=== PATIENT | female | born 1995 | race Caucasian/White ===

== ENCOUNTER → 2016-08-06 | Outpatient (CLI) | payer MEDICAID ==
--- NOTE | 2016-08-06 15:22 | REP ---
Obstetric sonography: History: Supervision of for anatomy followup. Placental location check. Comparison study May 16, 2016. Findings: Scanning through the gravid uterus demonstrates a viable single intrauterine gestation in a breech lie. motion is observed and heart rate is recorded at 139 beats per minute. An anterior grade 0 placenta is seen without evidence of previa or abruption. Amniotic fluid is subjectively normal. Closed cervical length is 3.2 cm. No extrauterine abnormality is observed. There has been appropriate interval growth. The placental tip is located 6.7 cm from the internal cervical os on transabdominal scanning. No anomaly is seen. The following anatomic structures are identified and felt to be sonographically unremarkable: cranium, choroid plexus, cavum, cerebellum and posterior fossa, lungs, four-chamber heart with left and right ventricular outflow tract views, diaphragm, left-sided stomach, abdominal wall cord insertion, three-vessel umbilical cord, kidneys and bladder, lower extremities. Biometry chart: BPD 7.8 cm = 31 weeks 2 days Head circumference 28.8 cm = 31 weeks 5 days Abdominal circumference 26.0 cm = 30 weeks 1 day Femur length 5.8 cm = 30 weeks 2 days Humeral length 5.4 cm = 31 weeks 2 days Cerebellar diameter 3.7 cm = 30 weeks 6 days HC/AC ratio normal 1.11 cephalic index normal 0.75 estimated weight 1568 grams 3 pounds 7 ounces 35th percentile for 30 weeks 5 days. GÓMEZ normal 8.7 cm. S/D ratio normal 3.05. Impression: Viable single intrauterine gestation at 30 weeks 3 days by today's composite sonographic criteria. Expected gestational age estimate based on prior sonography is 30 weeks 5 days SARAH by prior sonography is October 10, 2016. In conjunction with the prior study, anatomic survey is felt to be complete. Signed by Vince Ching MD 08/06/2016 05:13 P
== END ==
LOC: M SMT 12:45
PROVIDERS: ATTEND Advanced Practice Midwife
DX: Z34.82 Encounter for supervision of other normal pregnancy, second trimester (principal); Z3A.30 30 weeks gestation of pregnancy

== ENCOUNTER 2016-08-28 21:55 | Outpatient (CLI) | payer BC, MEDICAID ==
[~2016-08-28] VITALS: Ht 160 cm; Wt 74.0 kg
== END 2016-08-28 22:45 | disposition home or self-care (01) ==
LOC: M LDO 21:55
PROVIDERS: ATTEND Obstetrics & Gynecology
DX: O47.03 False labor before 37 completed weeks of gestation, third trimester (principal); Z3A.34 34 weeks gestation of pregnancy

== ENCOUNTER → 2016-09-14 | Outpatient (REF) | payer MEDICAID | LOC: M LAB REF 16:50 | PROVIDERS: ATTEND Advanced Practice Midwife | DX: Z36 Encounter for antenatal screening of mother (principal); Z3A.00 Weeks of gestation of pregnancy not specified ==

== ENCOUNTER 2016-10-02 16:18 | Inpatient (IN) | payer BC, MEDICAID ==
[~2016-10-02] VITALS: Ht 161.3 cm; Wt 72.0 kg
[2016-10-02] MEDS ORDERED: PRENTAB9 PO (16:30)
[2016-10-02 16:40] VITALS: BP 134/84
[2016-10-02 20:16] LABS: MEAN CORPUSCULAR HEMOGLOBIN 28.3 pg (27.0-33.0); MEAN CORPUSCULAR HGB CONC 33.9 g/dl (32.0-36.5); MEAN CORPUSCULAR VOLUME 83.7 fl (80.0-96.0); RED CELL DISTRIBUTION WIDTH 13.9 % (11.5-14.5)
[2016-10-02] MEDS: miSOPROStol 50 MCG 1/2 TAB (S0191) PO SCH (21:11)
--- NOTE | 2016-10-02 21:40 | HPE ---
DATE OF ADMISSION: 10/02/2016 A 21-year-old 1, para 0 female at 38-6/7 weeks gestation by last menstrual period (LMP) consistent with a 13-week ultrasound, estimated date of confinement (EDC) of 10/10/2016, presents with loss of fluid per vagina since 9 p.m. the day prior to admission. She continually leaked small amounts, felt wet. She denies contractions or vaginal bleeding. COURSE: The patient initiated care at 13 weeks gestation on 04/02/2016. Her blood pressure was 116/70, weight 137 pounds. Her course was significant for heart palpitations. She did see a taper/finisher and everything was normal. MEDICAL HISTORY: Noncontributory. SURGICAL HISTORY: Umbilical hernia. ALLERGIES: None. SOCIAL HISTORY: The father of the baby is involved with the patient. Denies cigarettes, alcohol, or drug use. FAMILY HISTORY: Noncontributory. PHYSICAL EXAMINATION: Blood pressure 134/84, pulse 81, afebrile. She is in no apparent distress. Head and neck exam: Normal. Lungs: Clear. Heart: Regular rate and rhythm. Abdomen: Nontender and gravid. heart tones: Category 1. Contractions: None. Sterile vaginal exam: Small pool in the vagina, positive fern, positive Nitrazine. Cervix is closed, 50% effaced. Extremities: Nontender. LABORATORY: Blood type O negative. Rubella immune. RPR nonreactive. Hepatitis B and C negative. HIV negative. GBS negative on 09/14/2016. ASSESSMENT: A 21-year-old 1 at 38-6/7 weeks gestation, presents with spontaneous rupture of membranes. The patient has likely been ruptured since 9 o'clock the evening before admission. Plan to admit for induction of labor. Risks of induction were discussed.
[2016-10-03] VITALS (44 sets, daily range): BP systolic 107–163; BP diastolic 58–100
[2016-10-03] MEDS: miSOPROStol 50 MCG 1/2 TAB (S0191) PO SCH (02:18)
[2016-10-03] MEDS ORDERED: PROMETHAZINE INJ 25 MG/ML VIAL (J2550) As Ordered ONE (06:58)
[2016-10-03] MEDS ORDERED: BUTORPHANOL 2 MG/ML INJ (J0595) As Ordered ONE (06:59)
[2016-10-03] MEDS ORDERED: BUTORPHANOL 2 MG/ML INJ (J0595) IV ONE ×2 (07:15→20:15)
[2016-10-03] MEDS ORDERED: PROMETHAZINE INJ 25 MG/ML VIAL (J2550) IV ONE ×2 (07:15→20:15)
[2016-10-03] MEDS ORDERED: LR 1,000 ML IV SCH (13:19)
[2016-10-03] MEDS ORDERED: OXYTOCIN DRIP 30 UNITS in APPROPRIATE DILUENT 1 EA IV SCH (13:30)
[2016-10-03] MEDS ORDERED: FENTANYL 2MCG/ML ROPIVACAINE 0.2% NACL 250 ML CADD As Ordered ONE (21:28)
[2016-10-04 00:09] VITALS: BP 118/80
--- NOTE | 2016-10-04 00:12 | DN ---
DATE OF DELIVERY: 10/03/2016 TIME OF WAS 23:07 GENDER: Male. APGARS: 8 and 9 WEIGHT: 2572 grams, 5 pounds, 11 ounces. ESTIMATED BLOOD LOSS: 300 mL. ANESTHESIA: Epidural. LACERATIONS: None. COUNTS: 5 Laparotomy sponges accounted for prior to and after delivery. DELIVERY NOTE: On the 09/13/2016 at 23:07, Ms. Rodriguez, a 21-year-old, 1, now para 1, had a spontaneous vaginal delivery of a live born male infant, score 8 and 9, weight 2572 grams, 5 pounds, 11 ounces. Head was delivered left occipitoanterior (HERMES) over an intact perineum. There was a nuchal cord, which was manually reduced followed by delivery of a left posterior shoulder, corpus and was handed to mom with a good cry. Cord was clamped times two by the father of the baby under my direction. Cord blood was obtained. Placenta was then drained and delivered grossly intact. A premixed bag of 500 mL of normal saline with 30 pitocin was then bolused along with uterine massage. The uterus was firm. Inspection of the cervix, vagina and perineum was grossly intact and hemostatic. Mom and baby went to recovery room in stable condition. Couple was decided to name their new born son, Sabas. KIRILL
[2016-10-04 00:24] VITALS: BP 115/72
[2016-10-04 00:39] VITALS: BP 117/76
[2016-10-04] MEDS ORDERED: OXYTOCIN DRIP 30 UNITS in APPROPRIATE DILUENT 1 EA IV SCH (00:56)
[2016-10-04] MEDS ORDERED: DIBUCAINE 1% OINTMENT 30GM TOP PRN (01:00)
[2016-10-04] MEDS ORDERED: METHYLERGONOVINE MALEATE 0.2 MG TAB PO PRN (01:00)
[2016-10-04] MEDS ORDERED: RHOGAM 300 MCG (1500 IU) INJ (J2790) IM SCH (01:00)
[2016-10-04] MEDS ORDERED: MOM 30ML SUSPENSION UDC PO PRN (01:00)
[2016-10-04] MEDS ORDERED: ANUSOL HC CREAM 30GM TOP PRN (01:00)
[2016-10-04] MEDS ORDERED: DOCUSATE SODIUM 100 MG CAP PO PRN (01:00)
[2016-10-04] MEDS ORDERED: ACETAMINOPHEN 500 MG TAB PO PRN (01:00)
[2016-10-04] MEDS ORDERED: MEASLES,MUMPS,RUBELLA VACCINE INJ (MMR-II) (90707) SC SCH (01:00)
[2016-10-04 01:44] VITALS: BP 119/59
[2016-10-04 05:40] VITALS: BP 129/69
[2016-10-04] MEDS: IBUPROFEN 800 MG TAB PO PRN ×2 (08:37→23:17)
[2016-10-04] MEDS: PRENATAL VITAMIN TAB PO SCH (09:15)
[2016-10-04 18:21] VITALS: BP 125/81
[2016-10-05 05:35] VITALS: BP 103/54
[2016-10-05] MEDS ORDERED: IBUP-1114 PO (08:47)
[2016-10-05] MEDS ORDERED: ACET50TA PO (08:47)
[2016-10-05] MEDS: PRENATAL VITAMIN TAB PO SCH (09:47)
[2016-10-05 21:00] VITALS: BP 131/67
== END 2016-10-05 22:00 | disposition home or self-care (01) | DRG 560 ==
LOC: M LDO 16:18 → M LDI 18:27 → M OBS 10-04 01:26
PROVIDERS: ADMIT Specialist; ATTEND Obstetrics & Gynecology
PROC: 10E0XZZ Delivery of Products of Conception, External Approach (ICD-10-PCS; principal; 2016-10-03)
DX: O69.81X0 Labor and delivery complicated by cord around neck, without compression, not applicable or unspecified (principal); Z37.0 Single live birth; Z3A.39 39 weeks gestation of pregnancy